=== PATIENT | male | born 1950 | race Caucasian/White ===

== ENCOUNTER → 2017-07-31 | Outpatient (CLI) | payer BC ==
[~2017-07-31] VITALS: Ht 176.5 cm; Wt 94.2 kg
[~2017-07-31] MED LIST: AMLO5TAB2 PO; BETH10TA2 PO; CHLO25TA2 PO; CHLORHEXIDINE GLUCONATE 2 % 1 PACK (2 CLOTHS) TOPICAL PRN; HUMALOG SQ; INSULIN HUMAN REGULAR 1,000 UNITS/10 ML VIAL ONE; INSULIN HUMAN REGULAR 1,000 UNITS/10 ML VIAL SQ PRN; LACTATED RINGER'S 1000 ML IV PRN; LEVO112T2 PO; METOPROLOL TARTRATE 25 MG TAB PO PRN; PANT40TA3 PO; POVIDONE IODINE 5% (ANTISEPSIS KIT) 4 APPLICATIONS EACH NARE PRN; PROPOFOL 200 MG/20 ML AMP IV ONE; RAMI10CA PO; SODIUM CHLORID 0.9% 500 ML IV PRN; VITATAB56 PO
--- NOTE | 2017-07-31 11:07 | PD.PROCEDR ---
GI Procedure PROCEDURE PERFORMED EUS INDICATION FOR PROCEDURE History of gastric ulcer and elevated gastrin level PROCEDURE: The procedure, risks and benefits were discussed with Mr. Mendez and informed consent was obtained. Anesthesia sedated him with Diprivan. He was placed in the left lateral decubitus position. Endoscopic ultrasound: The Pentax videoscope was introduced through the oropharynx and advanced to the second portion of the duodenum under direct visualization. FINDINGS: The pancreatic parenchyma appeared to be unremarkable from head to tail with a normal pancreatic duct Gallstone was noted but the gallbladder was otherwise unremarkable No vascular involvement noted No lymphadenopathy noted Unremarkable common bile duct ESTIMATED BLOOD LOSS: None SPECIMENS REMOVED: None COMPLICATIONS: None IMPRESSION: Gallstones PLAN: Follow-up in clinic in 3-4 weeks Patient ad stated that while off Protonix he did not have any reflux and so this would need to be discussed in the office Ngiel Martinez MD Jul 31, 2017 11:07
[2017-07-31 12:00] VITALS: BP 129/65; PULSE 59; RESP 18; TEMP 97.5; O2SAT 100
--- NOTE | 2017-07-31 17:04 | EKG ---
Date Performed: 07/31/2017 Time Performed: 08:19:13 PTAGE: 67 years EKG: Sinus rhythm NORMAL ECG NO PREVIOUS TRACING DOCTOR: Meme Villela Interpretating Date/Time 07/31/2017 17:02:56
== END ==
LOC: HSDC 07:59
PROVIDERS: ATTEND Internal Medicine Gastroenterology
DX: K25.9 Gastric ulcer, unspecified as acute or chronic, without hemorrhage or perforation (principal); E16.4 Increased secretion of gastrin; E11.9 Type 2 diabetes mellitus without complications; I10 Essential (primary) hypertension; Z01.810 Encounter for preprocedural cardiovascular examination
CPT/HCPCS: 00740; 43259; 82948; 93005; J1815; J3010; J7120